=== PATIENT | female | born 1990 | race Caucasian/White ===

== ENCOUNTER 2016-12-26 14:20 | Emergency (ER) | payer SELFPAY ==
[2016-12-26 14:24] VITALS: BP 93/72; BMI 30.5
--- NOTE | 2016-12-26 14:49 | DR.GENAD ---
HPI - PCP Primary Care Physician: SARAN - Complaint/Symptoms Chief Complaint:: PT LEFT SIDE OF THE LIP IS SWOLLEN. SHE STATED THAT SHE WAKES UP AND LIPS ARE SWOLLEN. - Source History Provided: Patient - Mode of Arrival Mode of Arrival: Ambulatory - Timing Onset of Chief Complaint: 12/26/16 PMH - PMH Past Medical History: Yes Past Medical History: GERD Past Medical History Comment: PCOS Past Surgical History: Yes Surgical History: Ortho Surgery, Other - Family History History of Family Medical Conditions: Yes Family Medical History: Diabetes Mellitus, Hypertension - Social History Does patient currently use any type of tobacco product: Yes Have you used tobacco products in the last 12 months: Yes Type of Tobacco Use: Cigarettes Does any household member use tobacco: No Alcohol Use: None Do you use any recreational Drugs:: No Lives With: Family Lives Where: Home - infectious screening In the last 2 months have you had wt loss of >10#?: NO Have you had fever, night sweats or hemotysis?: No Have you traveled outside the country in the last 6 months?: No Isolation: Standard ROS - Review of Systems Constitutional: No Symptoms Reported Eyes: No Symptoms Reported ENTM: No Symptoms Reported Respiratoy: No Symptoms Reported Cardiovascular: No Symptoms Reported Gastrointestinal/Abdominal: No Symptoms Reported Genitourinary: No Symptoms Reported Neurological: No Symptoms Reported Musculoskeletal: No Symptoms Reported Integumentary: Other (swelling of lip) Hematologic/Lymphatic: No Symptoms Reported Endocrine: No Symptoms Reported Psychiatric: No Symptoms Reported All Other Systems: Reviewed and Negative PE - Vital Signs Vitals: Temperature 98.0 F Pulse Rate 92 Respiratory Rate 18 Blood Pressure 93/72 O2 Sat by Pulse Oximetry 99 - General Limitations: No Limitations General Appearance: Alert, In No Apparent Distress - Head Head Exam: Normal Inspection, Atraumatic - Eyes Eye exam: Normal Appearance, PERRL, EOMI - ENT ENT Exam: Normal Exam, Other (left upper lip is edematous) External Ear Exam: Normal External Inspection TM/Canal Exam: Bilateral Normal Nose Exam: Normal Nose Exam - Neck Neck Exam: Normal Inspection - Chest Chest Inspection: Normal Inspection - Respiratory Respiratory Exam: Normal Lung Sounds Bilat Respiratory Exam: Bilateral Clear to Auscultation - Cardiovascular Cardiovascular Exam: Regular Rate, Normal Rhythm - Abdominal Exam Abdominal Exam: Normal Inspection Abdominal Tenderness: negative: RUQ, RLQ, LUQ, LLQ, Epigastrium, Suprapubic, Diffuse, Mild, Moderate, Severe, Other - Extremities Extremities Exam: Normal Inspection - Back Back Exam: Normal Inspection - Neurologic Neurological Exam: Alert, Oriented X3, CN II-XII Intact - Skin Skin Exam: Warm, Dry, Intact, Other (dermato graphic) - Diagnosis Discharge Problem: Angioedema of lips Qualifiers: Encounter type: initial encounter Qualified Code(s): T78.3XXA - Angioneurotic edema, initial encounter - Discharge Plan Condition: Stable - Follow ups/Referrals Follow ups/Referrals: NFD,None [Primary Care Provider] - 3 days - Instructions
== END 2016-12-26 15:05 | disposition home or self-care (01) ==
LOC: ER 14:20
DX: T78.3XXA Angioneurotic edema, initial encounter (principal)
CPT/HCPCS: 99281; 99282

== ENCOUNTER 2017-01-11 20:11 | Emergency (ER) | payer SELFPAY ==
[2017-01-11 20:29] VITALS: BMI 30.4
[2017-01-11] MEDS ORDERED: TORADOL 60 MG VIAL IM ONE (21:01)
--- NOTE | 2017-01-11 21:04 | DR.GENAD ---
HPI - PCP Primary Care Physician: nfd - Complaint/Symptoms Chief Complaint Doctors Comments: Patient complains of right knee pain for about one year with swelling and pain on bending her knee off and on for a while. states she works at [employer] and has to do a lot of bending and she has been wearing a brace on her left knee to reduce the pain when she change position. States the pain is 7 of 10 and she has not taken anything for the pain. She has not seen an orthopedist and she has no local doctor. She denies any recent trauma. States she smokes 1/2 pack cigarette daily and denies alcohol or drug usage. States she has PCOS and is not . She denies pain in other joints. Chief Complaint:: pt c/o lt knee pain-denies injury-says pain has been on and off x 1 yr-has not been to ortho-has knee brace on Self Treatment fo Chief Complaint: has velcro knee brace on - Nurses notes reviewed Nurses Notes Review: Yes - Source History Provided: Patient - Mode of Arrival Mode of Arrival: Ambulatory - Timing Onset of Chief Complaint: 02/02/16 Came on: Gradually - Duration Duration: Intermittent How lon Duration: Weeks - Location Location: left knee pain - Severity Severity: Moderate - Modifying Factors Worsens:: walking and bending Improves:: nothing PMH - PMH Past Medical History: No Past Medical History: GERD Past Surgical History: Yes Surgical History: Ortho Surgery, Other Past Surgical History Comment: thumb surgery - Family History History of Family Medical Conditions: No Family Medical History: Diabetes Mellitus, Hypertension - Social History Does patient currently use any type of tobacco product: Yes Have you used tobacco products in the last 12 months: Yes Type of Tobacco Use: Cigarettes Alcohol Use: None Do you use any recreational Drugs:: No Lives With: Spouse Lives Where: Home - infectious screening Have you traveled outside the country in the last 6 months?: No Isolation: Standard ROS - Review of Systems Constitutional: No Symptoms Reported. negative: See HPI, Chills, Diaphoresis, Fever, Malaise, Weakness, Irritable, Fatigue, Loss of Appetite, Other Eyes: No Symptoms Reported. negative: See HPI, Eye Pain, Blurred Vision, Tearing, Discharge, Photophobia, Diplopia, Other ENTM: No Symptoms Reported Respiratoy: No Symptoms Reported. negative: See HPI, Productive Cough, Non- Productive Cough, Moist Cough, Dry Cough, Hacking Cough, Barking Cough, Brassy Cough, Orthopnea, Short of Breath, Stridor, Wheezing, Hemoptysis, Other Cardiovascular: No Symptoms Reported. negative: See HPI, Chest Pain, Edema, Palpitations, Syncope, Cyanosis, Skin Mottling, Other Gastrointestinal/Abdominal: No Symptoms Reported. negative: See HPI, Abdominal Pain, Constipation, Diarrhea, Nausea, Vomiting, Food Intolerance, Other Genitourinary: No Symptoms Reported. negative: See HPI, Discharge, Dysuria, Frequency, Hematuria, Pain, Bleeding, Other Neurological: No Symptoms Reported Musculoskeletal: Left, Knee (left knee pain; no swelling or abraison noted) Integumentary: No Symptoms Reported Hematologic/Lymphatic: No Symptoms Reported Endocrine: No Symptoms Reported Psychiatric: No Symptoms Reported. negative: See HPI, Anxiety, Depression, Hallucinations, Excessive crying, Suicidal, Other PE - Vital Signs Vitals: Temperature 98.2 F Pulse Rate 77 Respiratory Rate 16 Blood Pressure 126/81 O2 Sat by Pulse Oximetry 99 - General Limitations: No Limitations General Appearance: Alert, In Distress (mild) - Head Head Exam: Normal Inspection, Atraumatic, Normocephalic - Eyes Eye exam: Normal Appearance, PERRL, EOMI. negative: Scleral Icterus, Conjunctival Injection, Nystagmus, Miosis, Mydrasis, Periorbital Swelling, Periorbital Tenderness, Other - ENT ENT Exam: Normal Exam, Normal Oropharynx, Normal External Ear Exam, Mucous Membranes Moist, TM's Normal Bilaterally External Ear Exam: Normal External Inspection TM/Canal Exam: Bilateral Normal Nose Exam: Normal Nose Exam (nasal congestion) Mouth Exam: Normal Inspection. negative: Drooling, Trismus, Lip Swelling, Tongue Elevation, Tongue Swelling, Laceration, Other Throat Exam: Normal Inspection. negative: Tonsillar Erythema, Tonsillomegaly, Tonsillar Exudate, R Peritonsillar Mass, L Peritonsillar Mass, Muffled Voice, Other - Neck Neck Exam: Normal Inspection, Full ROM, Trachea Midline. negative: Tenderness, Meningismus, Lymphadenopathy, Thyromegaly, Other - Chest Chest Inspection: Normal Inspection, Symmetric Chest Wall Rise - Respiratory Respiratory Exam: Normal Lung Sounds Bilat Respiratory Exam: Bilateral Clear to Auscultation - Cardiovascular Cardiovascular Exam: Regular Rate, Normal Rhythm, Normal Heart Sounds. negative : Bradycardia, Tachycardia, Irregular Rhythm, Systolic Murmur, Diastolic Murmur , Rubs, Gallop, Clicks, JVD, +S1, +S2, +S3, +S4, Other - Abdominal Exam Abdominal Exam: Normal Inspection, Normal Bowel Sounds, Soft. negative: Distention, Tenderness, Guarding, Rebound, Rigidity, Dimnished Bowel Sounds, Hyperactive Bowel Sounds, Hypoactive Bowel Sounds, Organomegaly, Trauma, Incision, Ascites, Mass, Bruit, Pulsatile Mass, Hernia, Other Abdominal Tenderness: negative: RUQ, RLQ, LUQ, LLQ, Epigastrium, Suprapubic, Diffuse, Mild, Moderate, Severe, Other - Extremities Extremities Exam: Normal Inspection, Full ROM, Tenderness (left knee with tenderness;no swelling or erythema), Normal Capillary Refill - Back Back Exam: Normal Inspection, Full ROM. negative: Tenderness, (R) CVA Tenderness, (L) CVA Tenderness, Muscle Spasm, Paraspinal Tenderness, Vertebral Tenderness, Rashes, (R) Sciatic Notch Tenderness, (L) Sciatic Notch Tendern, (R ) Straight Leg Raise, (L) Straight Leg Raise, Other - Neurologic Neurological Exam: Alert, Oriented X3, CN II-XII Intact, Normal Gait, Reflexes Normal - Psychiatric Psychiatric Exam: Normal Affect, Normal Mood. negative: Depressed, Agitated, Anxious, Flat Affect, Manic, Homicidal Ideation, Suicidal Ideation, Other - Skin Skin Exam: Warm, Dry, Intact, Normal Color. negative: Rash, Cyanosis, Diaphoresis, Erythema, Pallor, Mottled, Other ROR - Labs Reviewed Laboratory Results Reviewed?: Yes (all x-ray results reviewed and discussed with patient) - XRAY XRAY Interpreted by: Radiologist (Left knee: Moderate-sized suprpatellar joint effusion. No fracture or dislocation noted. Degenerative change within the knee.) - Diagnosis Discharge Problem: Joint effusion of knee, Left knee pain Degenerative arthritis of left knee Qualifiers: Osteoarthritis type: unspecified Qualified Code(s): M17.12 - Unilateral primary osteoarthritis, left knee - Discharge Plan Disposition: 01 HOME, SELF-CARE Condition: Stable Prescriptions: Acetaminophen/Codeine Tab [TYLENOL w/CODEINE #3 (300 MG/30 MG) *] 1 tab PO Q4- 6H PRN #24 tab PRN Reason: Pain Meloxicam [MOBIC 15 MG *] 15 mg PO DAILY #30 tab Methylprednisolone Dosepak 4Mg [MEDROL DOSEPAK (4 mg tab x 21)] 1 deepa PO ONCE # 1 deepa - Follow ups/Referrals Follow ups/Referrals: NFD,None [Primary Care Provider] - 3 days SOSA LEVIN [STAFF PHYSICIAN] - 3 days KENNEDI PERRY [CONSULTING PHYSICIAN] - 3 days - Instructions Instructions: Arthritis, Knee Pain, [id number], Knee Effusion
[2017-01-11] MEDS ORDERED: TORADOL 60 MG VIAL ONE (21:07)
--- NOTE | 2017-01-11 21:42 | RAD ---
Three views of the left knee Indication: Left knee pain and swelling Findings: There is no fracture or dislocation within the left knee. Patellofemoral and femorotibial joint spaces are maintained. There is a moderate-sized suprapatellar joint effusion. Impression: 1.Moderate-sized suprapatellar joint effusion. Finding is indeterminate and potentially represent se quela of recent trauma with soft tissue injury, synovitis or synovial proliferative process and clin ical correlation is needed. 2.No acute fracture, dislocation or significant degenerative change within the left knee. Reported By:
[2017-01-11 23:06] VITALS: BP 121/76
== END 2017-01-11 23:05 | disposition home or self-care (01) ==
LOC: ER 20:21
DX: M25.462 Effusion, left knee (principal); M25.562 Pain in left knee; M17.12 Unilateral primary osteoarthritis, left knee
CPT/HCPCS: 73564; 96372; 99282; 99283; J1885

== ENCOUNTER 2017-11-11 18:00 | Emergency (ER) | payer SELFPAY ==
[2017-11-11 18:07] VITALS: BMI 31.0
--- NOTE | 2017-11-11 19:02 | DR.URIAD ---
HPI - Time Seen Time seen: 18:45 - PCP Primary Care Physician: SARAN - HPI Comment HPI Comment: HISTORY BELOW. - Complaint Chief Complaint Doctors Comments: COUGH, COLD, CONGESTION AND MUSCLE ACHES WITH SOB TIMES 5 TO 6 DAYS. GETTING WORSE. Chief Complaint:: PT C/O CCC, SORE THROAT AND STUFFY NOSE WITH VALERIO AND SHE WANTS TO GET IT SEEN ABOUT BEFORE IT GETS WORSE PT C/O THAT IT STARTED LAST WEEK Self Treatment fo Chief Complaint: DAYQUIL, SUDAPHED - Reviewed Nurses Notes Reviewed: Yes - Source History Provided: Patient - Mode of Arrival Mode of Arrival: Ambulatory - Timing Onset of Chief Complaint: 11/05/17 - Context Recent Treated Infections: None History of Respiratory: None - Quality Quality of Cough: Productive, Yellow Rhinorrhea: Green Shortness of Breath: Mild - Associated Signs and Symptoms Other Signs and Symptoms: Cough, Myalgias, Sore Throat, URI PMH - PMH Past Medical History: No Past Medical History: GERD Past Surgical History: Yes Surgical History: Ortho Surgery, Other Past Surgical History Comment: D&C, THUMB, - Family History History of Family Medical Conditions: Yes Family Medical History: Diabetes Mellitus, Hypertension - Social History Does patient currently use any type of tobacco product: Yes Have you used tobacco products in the last 12 months: Yes Type of Tobacco Use: Cigarettes How many years tobacco product used: 7 Does any household member use tobacco: No Do you use any recreational Drugs:: No Lives With: Family Lives Where: Home - infectious screening In the last 2 months have you had wt loss of >10#?: NO Have you had fever, night sweats or hemotysis?: No Have you traveled outside the country in the last 6 months?: No Isolation: Airborn/Negative Pressure ROS - Review of Systems Constitutional: Weakness, Fatigue Eyes: negative: Eye Pain, Discharge ENTM: Nose Discharge, Nose Congestion, Throat Pain. negative: Ear Pain Respiratoy: Productive Cough, Short of Breath. negative: Wheezing, Hemoptysis Cardiovascular: No Symptoms Reported Gastrointestinal/Abdominal: No Symptoms Reported Genitourinary: No Symptoms Reported Neurological: Headache, Weakness, Dizziness Musculoskeletal: Muscle Pain Integumentary: No Symptoms Reported Hematologic/Lymphatic: No Symptoms Reported Endocrine: No Symptoms Reported All Other Systems: Reviewed and Negative PE - Vital Signs Vitals: Temperature 98 F Pulse Rate [Left Brachial] 86 Pulse Rate 87 Respiratory Rate 16 Blood Pressure [Left Arm] 131/91 Blood Pressure 139/69 O2 Sat by Pulse Oximetry 97 - General Limitations: No Limitations General Appearance: Alert - Head Head Exam: Normal Inspection - Eyes Eye exam: Normal Appearance - ENT ENT Exam: Normal External Ear Exam External Ear Exam: Normal External Inspection TM/Canal Exam: Bilateral Bulging Nose Exam: Normal Nose Exam Mouth Exam: Normal Inspection Throat Exam: Tonsillar Erythema. negative: Tonsillomegaly, Tonsillar Exudate - Neck Neck Exam: Trachea Midline - Chest Chest Inspection: Symmetric Chest Wall Rise - Respiratory Respiratory Exam: Normal Lung Sounds Bilat Respiratory Exam: Bilateral Rhonchi, Lower Rhonchi - Cardiovascular Cardiovascular Exam: Regular Rate, Normal Rhythm, Normal Heart Sounds - Abdominal Exam Abdominal Exam: Normal Inspection - Extremeties Extremities Exam: Normal Inspection - Back Back Exam: Normal Inspection - Neurologic Neurological Exam: Alert, Oriented X3 - Psychiatric Psychiatric Exam: Normal Affect, Normal Mood - Skin Skin Exam: Normal Color MDM - Differential Diagnosis Differential Diagnosis: Influenza A, Influenza B, Streptococcal pharyngitis, Viral pharyngitis, Pneumonia, Sinsusitis, URI Course - Treatment Treatment: SEE ORDERS. - Education/Counseling Education/Counseling: Patient, Education Educated On: Diagnosis, Needs for Follow Up ROR - Labs Reviewed Laboratory Results Reviewed?: Yes Laboratory: 11/11/17 18:35 Throat Throat Culture - Final Influenza Type A (PCR) Negative (NEGATIVE) 11/11/17 18:35 Influenza Type B (PCR) Negative (NEGATIVE) 11/11/17 18:35 S. pyogenes (TEM-PCR) Not detected (NOT DETECT) 11/11/17 18:35 - Diagnosis Discharge Problem: Bronchitis Sinusitis Qualifiers: Sinusitis location: unspecified location Chronicity: acute Recurrence: not specified as recurrent Qualified Code(s): J01.90 - Acute sinusitis, unspecified - Discharge Plan Disposition: HOME, SELF-CARE Condition: Stable Prescriptions: Amoxicillin [Amoxil 875 mg] 875 mg PO Q12H #20 tab Cetirizine HCl [Zyrtec Tab 10 mg] 10 mg PO DAILY PRN #10 tab PRN Reason: Promethazine W/Codeine [PHENERGAN W/CODEINE 6.25mg/10mg (5mL) *] 5 ml PO Q6H PRN #120 ml PRN Reason: Cough - Follow ups/Referrals Follow ups/Referrals: NFD,None [Primary Care Provider] - 3 days - Instructions Instructions: Sinusitis, Adult, [id number], Acute Bronchitis, [id number] Additional Instructions: RETURN TO ED IF WORSE.
[2017-11-11] MEDS ORDERED: PHENERGAN W/CODEINE 6.25MG/10MG PO ONE (19:47)
[2017-11-11] MEDS ORDERED: AMOXIL CAP 500 MG PO ONE ×2 (19:47→19:49)
[2017-11-11 19:49] VITALS: BP 131/91
[2017-11-11] MEDS ORDERED: PHENERGAN W/CODEINE 6.25MG/10MG ONE (19:49)
== END 2017-11-11 19:53 | disposition home or self-care (01) ==
LOC: ER 18:10
DX: J40 Bronchitis, not specified as acute or chronic (principal); J01.80 Other acute sinusitis
CPT/HCPCS: 87070; 87502; 87651; 87880; 99282